=== PATIENT | male | born 1950 | race Caucasian/White ===

== ENCOUNTER 2021-04-01 12:08 | Day surgery (SDC) | payer OTHER, BC ==
[~2021-04-01] VITALS: Ht 188 cm; Wt 119.3 kg
[2021-04-01 12:54] VITALS: BP 106/66
== END 2021-04-01 17:10 | disposition home or self-care (01) ==
LOC: OUT 12:08
PROVIDERS: ATTEND Urology
DX: N35.016 Post-traumatic urethral stricture, male, overlapping sites (principal); F52.21 Male erectile disorder; E29.1 Testicular hypofunction; I10 Essential (primary) hypertension; I48.91 Unspecified atrial fibrillation; E11.9 Type 2 diabetes mellitus without complications; Z79.899 Other long term (current) drug therapy; Z88.8 Allergy status to other drugs, medicaments and biological substances
CPT/HCPCS: 51102; 76942; 77002; 99156; 99157; C1725; C1769; J2250; J3010; Q9966